=== PATIENT | female | born 1995 | race Caucasian/White ===

== ENCOUNTER 2016-12-14 17:23 | Emergency (ER) | payer BC ==
[~2016-12-14] VITALS: Ht 172.7 cm; Wt 69.3 kg
[2016-12-14 17:26] VITALS: TEMP 37.6; Ht 172.7 cm; Wt 69.3 kg
[2016-12-14] MEDS ORDERED: METHYLPREDNISOLONE 125 MG VIAL IV STA (19:56)
[2016-12-14] MEDS ORDERED: SODIUM CHLORIDE 0.9% 1000ML 2,000 ML IV STA (19:56)
[2016-12-14] MEDS ORDERED: KETOROLAC TROMETHAMINE 30 MG/ML VIAL IV STA (19:56)
[2016-12-14] MEDS ORDERED: DiphenhydrAMINE HCL 50 MG/ML VIAL IV STA (19:58)
[2016-12-14] MEDS ORDERED: CALCTAB7 PO (20:17)
[2016-12-14] MEDS ORDERED: BCPILLS PO (20:17)
[2016-12-14] MEDS ORDERED: CRAN1CAP15 (20:17)
[2016-12-14] MEDS ORDERED: MAGN400T6 PO (20:17)
[2016-12-14] MEDS ORDERED: VILA1TAB3 PO (20:17)
[2016-12-14] MEDS ORDERED: ECHI80CA PO (20:17)
[2016-12-14] MEDS ORDERED: FERR1TAB23 PO (20:17)
[2016-12-14 20:37] LABS: HEMATOCRIT 40.3 % (37-47); MEAN CELL VOLUME 87.6 fL (80-100); MEAN CORPUSCULAR HEMOGLOBIN 30.7 pg (25-34); MEAN PLATELET VOLUME 8.4 fL (7.4-10.4); PLATELET COUNT 305 K/uL (130-400); WHITE BLOOD COUNT 21.15 K/uL (4.8-10.8)
[2016-12-14 20:59] LABS: BUN/CREATININE RATIO 7.8 (10-20); C-REACTIVE PROTEIN 16.2 mg/dl (0-0.29); CALCIUM 9.1 mg/dl (8.5-10.1); CREATININE 1.2 mg/dl (0.60-1.20); POTASSIUM 3.7 mmol/L (3.5-5.1)
[2016-12-14 21:03] LABS: BASO % 0.1 %; BASO ABS # 0.02 K/uL (0-0.2); COMPLETE YES; IG% 0.4 %; LYMPH % 8.8 %; LYMPH ABS # 1.87 K/uL (1.2-3.4); MONO % 6.2 %; NEUT % 84.5 %
[2016-12-14] MEDS ORDERED: CEFTRIAXONE SOD INJ 1 GM ADDVIAL IV STA (21:54)
[2016-12-14] MEDS ORDERED: PRED20TA2 PO (21:57)
[2016-12-14] MEDS ORDERED: AMOX875T PO (21:57)
--- NOTE | 2016-12-14 21:58 | EMERGENCY ROOM VISIT NOTE ---
History Report prepared by Samir: Maryellen Beasley Under the Supervision of: Dr. Elpidio Wren M.D. First contact with patient: 19:46 Chief Complaint: ILLNESS Stated Complaint: ELEVATED HEARTRATE History of Present Illness The patient is a 21 year old female who presents to the Emergency Room with complaints of worsening illness that started yesterday. The patient was evaluated at [facility] and they send her to the ED for further evaluation of her tachycardia. She is experiencing fevers, a sore throat, and generalized body aches, which all started yesterday. She states that she has been unable to eat or drink much secondary to her sore throat. The patient is experiencing neck pain upon palpation. She tried to relieve her symptoms with ibuprofen around 1500, but she experienced minimal relief. The patient denies rhinorrhea, facial edema, abdominal pain, nausea, burning with urination, lower extremity edema, and rashes. The patient states that her roommate was diagnosed with strep throat last week and experienced similar symptoms. She adds that she was on antibiotics about one month ago for a swollen lymph node in her face. Source of History: patient Onset: yesterday Position: other (global) Quality: other (illness ) Timing: worsening Associated Symptoms: + fevers, + neck pain (with palpation), + sorethroat, No abdominal pain, No nausea, No rash, No urinary symptoms (burning with urination) Note: generalized body aches, tachycardia, no rhinorrhea, no facial edema, no lower extremity edema Review of Systems See HPI for pertinent positives & negatives. A total of 10 systems reviewed and were otherwise negative. Past Medical & Surgical Medical Problems: (1) No pertinent past medical history Family History No pertinent family history Social History Smoking Status: Never Smoker Housing Status: lives with roommate Occupation Status: [email or web address] student Current/Historical Medications Scheduled Amoxicillin & Pot Clavulanate (Augmentin 875-125 mg), 875 MG PO BID Control Pills ( Control Pills), 1 TAB PO DAILY Calcium Carbonate-Vitamin D W/ (Caltrate 600 Plus), 1 TAB PO DAILY Cranberry-Vitamin C-Vitamin E (Cranberry), 1 CAP DAILYBB Echinacea (Echinacea), 1 CAP PO DAILY Ferrous Sulfate (Iron), 1 TAB PO DAILY Magnesium Oxide (Mag-Ox), 400 MG PO DAILY Prednisone (Prednisone Tab), 20 TAB PO DAILY Vilazodone Hcl (Viibryd), 1 TAB PO DAILY Allergies Coded Allergies: No Known Allergies (Unverified , 12/14/16) Physical Exam Vital Signs Date Time Temp Pulse Resp B/P Pulse Ox O2 Delivery O2 Flow Rate FiO2 12/14/16 22:46 103 20 127/85 97 Room Air 12/14/16 22:20 62 18 124/81 99 12/14/16 21:45 94 18 115/71 100 Room Air 12/14/16 20:21 101 18 100/80 98 Room Air 12/14/16 17:26 37.6 141 18 123/84 97 Room Air Physical Exam GENERAL: Patient is tired appearing and in mild distress. HEENT: No acute trauma, normocephalic atraumatic, mucous membranes dry, no nasal congestion, no scleral icterus, swollen mal 4 tonsils with erythema and covered in exudate. NECK: Mild anterior lymphadenopathy, no stridor, no adenopathy, no meningismus, trachea is midline. LUNGS: No dyspnea. Clear to auscultation and equal bilaterally. No wheeze, no rhonchi. HEART: Tachycardic rate and regular rhythm. No murmurs, rubs, gallops appreciated. ABDOMEN: Soft, nontender, bowel sounds positive, no masses appreciated, no peritonitis. BACK: No midline tenderness, no CVA tenderness EXTREMITIES: Normal motion all extremities, no cyanosis, no edema. NEUROLOGIC: Alert and oriented, no acute motor or sensory deficits, no focal weakness, cranial nerves grossly intact. SKIN: No rash, no jaundice, no diaphoresis. Medical Decision & Procedures Laboratory Results 12/14/16 20:20 Red Blood Count 4.60, Mean Corpuscular Volume 87.6, Mean Corpuscular Hemoglobin 30.7, Mean Corpuscular Hemoglobin Concent 35.0, Mean Platelet Volume 8.4, Neutrophils (%) (Auto) 84.5, Lymphocytes (%) (Auto) 8.8, Monocytes (%) (Auto) 6.2, Eosinophils (%) (Auto) 0.0, Basophils (%) (Auto) 0.1, Neutrophils # (Auto) 17.86, Lymphocytes # (Auto) 1.87, Monocytes # (Auto) 1.31, Eosinophils # (Auto) 0.00, Basophils # (Auto) 0.02 12/14/16 20:20 Test 3/27/17 20:20 12/14/16 20:31 White Blood Count 21.15 K/uL (4.8-10.8) Red Blood Count 4.60 M/uL (4.2-5.4) Hemoglobin 14.1 g/dL (12.0-16.0) Hematocrit 40.3 % (37-47) Mean Corpuscular Volume 87.6 fL (80-100) Mean Corpuscular Hemoglobin 30.7 pg (25-34) Mean Corpuscular Hemoglobin Concent 35.0 g/dl (32-36) Platelet Count 305 K/uL (130-400) Mean Platelet Volume 8.4 fL (7.4-10.4) Neutrophils (%) (Auto) 84.5 % Lymphocytes (%) (Auto) 8.8 % Monocytes (%) (Auto) 6.2 % Eosinophils (%) (Auto) 0.0 % Basophils (%) (Auto) 0.1 % Neutrophils # (Auto) 17.86 K/uL (1.4-6.5) Lymphocytes # (Auto) 1.87 K/uL (1.2-3.4) Monocytes # (Auto) 1.31 K/uL (0.11-0.59) Eosinophils # (Auto) 0.00 K/uL (0-0.5) Basophils # (Auto) 0.02 K/uL (0-0.2) RDW Standard Deviation 39.4 fL (36.4-46.3) RDW Coefficient of Variation 12.3 % (11.5-14.5) Immature Granulocyte % (Auto) 0.4 % Immature Granulocyte # (Auto) 0.09 K/uL (0.00-0.02) Red Blood Cell Morphology Unremarkable Anion Gap 10.0 mmol/L (3-11) Est Creatinine Clear Calc Drug Dose 75.4 ml/min Estimated GFR () 75.3 Estimated GFR (Non- 65.0 BUN/Creatinine Ratio 7.8 (10-20) Calcium Level 9.1 mg/dl (8.5-10.1) C-Reactive Protein 16.20 mg/dl (0-0.29) Monoscreen NEG (NEG) Bedside Lactic Acid Venous 1.13 mmol/L (0.90-1.70) Laboratory results as reviewed by me. Medications Administered Medications (Trade) Dose Ordered Sig/Tawana Route Start Time Stop Time Status Last Admin Dose Admin Sodium Chloride (Nss 1000ml) 2,000 ml @ 999 mls/hr Q2H1M STAT IV 12/14/16 19:56 12/14/16 21:56 DC 12/14/16 20:16 999 MLS/HR Methylprednisolone Sodium Succinate (Solu-Medrol IV) 125 mg NOW STAT IV 12/14/16 19:56 12/14/16 19:58 DC 12/14/16 20:16 125 MG Ketorolac Tromethamine (Toradol Inj) 30 mg NOW STAT IV 12/14/16 19:56 12/14/16 19:58 DC 12/14/16 20:17 30 MG Diphenhydramine HCl (Benadryl Inj) 25 mg NOW STAT IV 12/14/16 19:58 12/14/16 19:59 DC 12/14/16 20:16 25 MG Ceftriaxone Sodium (Rocephin Inj) 1 gm NOW STAT IV 12/14/16 21:54 12/14/16 21:55 DC 12/14/16 22:05 1 GM Amoxicillin/ Clavulanate Potassium (Augmentin Tab) 875 mg ONE ONCE PO 12/14/16 22:00 12/14/16 22:01 DC 12/14/16 22:05 875 MG Acetaminophen/ Hydrocodone Bitart (Hydrocod/Apap Elix 7.5/325MG/ 15ML Home Pack) 1 homepack UD ONCE PO 12/14/16 22:00 12/14/16 22:01 DC 12/14/16 22:05 1 HOMEPACK ED Course 1947: The patient was evaluated in room C9. A complete history and physical exam was performed. 1955: Ordered Toradol Inj 30 mg IV, Solu-Medrol 125 mg IV, Sodium Chloride 2000 ml @ 999 mls/hr IV 1957: Ordered Benadryl Inj 25 mg IV 2040: I reassessed the patient. She is feeling better. 2149: Reevaluated the patient. I offered to admit the patient for further treatment, but she states that she is hungry and would like to go home. The patient is aware that she can return at any time if her symptoms worsen. Discussed results and discharge instructions: the patient and her dad verbalized understanding and agreement. The patient is ready for discharge. 2153: Ordered Rocephin Inj 1 gm IV 2199: Ordered Acetaminophen/Hydrocodone Bitart 1 homepack PO, Augmentin Tab 875 mg PO Medical Decision Differential: Viral, Tonsillitis, Strep, [place], Peritonsillar Abscess, Retropharyngeal Abscess, Otitis, Pneumonia, Influenza, amongst other pathologies entertained. 21 yr old female with quite severe bilateral tonsillitis. No evidence of abscess at this time as both are equal and without trismus nor ROM issues neck nor neck swelling. She has negative mono. Had negative strep earlier in day but her roommate is strep positive and her tonsils very much look bacterial. Able to swallow, not drooling and no breathing issues. She has no Mumps contact and father denies any swelling in face of patient. She has no lung complaints. Lactic acid negative and BP good thus not septic shock. She has tachycardia that resolved with IV NSS bolus. She has quite elevated WBC consistent with SIRs/Sepsis. I discussed lab findings at length with patient and father. She has normal vitals, feels much improved and is not interested in being admitted to the hospital. She very much wishes to see how she does as an outpt. I have discussed symptoms that require RTED. She is stable and looks well with no difficulty ambulating to bathroom. She notes quite frequent sore throats and issues with her tonsils. I suspect she will need tonsillectomy in near future and have expressed this thought to pt/father. Offered follow up with ENT around her though they will defer to doing this at home. She will be placed on prolonged taper of steroids as well as 10 days augmentin to try and maximize outpatient therapy. Impression Primary Impression: Acute bacterial tonsillitis Additional Impressions: Leukocytosis Dehydration Tachycardia Scribe Attestation The scribe's documentation has been prepared under my direction and personally reviewed by me in its entirety. I confirm that the note above accurately reflects all work, treatment, procedures, and medical decision making performed by me. Departure Information Dispostion Home / Self-Care Prescriptions Amoxicillin & Pot Clavulanate (Augmentin 875-125 mg) 1 Tab Tab 875 MG PO BID for 10 Days, #20 TAB Prov: Elpidio Wren M.D. 12/14/16 Prednisone (Prednisone Tab) 20 Mg Tab 20 TAB PO DAILY, #18 TAB 3 tabs daily for 3 days, then 2 tabs daily for 3 days, then 1 tab daily for 3 days. Prov: Elpidio Wren M.D. 12/14/16 Referrals No Doctor, Assigned (PCP) Forms HOME CARE DOCUMENTATION FORM, IMPORTANT VISIT INFORMATION, WORK / SCHOOL INSTRUCTIONS Patient Instructions ED Tonsillitis, [facility] Additional Instructions It is important to follow up with ENT for repeat evaluation of tonsils. If at any time you feels symptoms are worsening, you can not swallow, you have increasing fevers, passing out, swelling of neck/tongue or other concerns, return for further evaluation. You have received a narcotic pain medication. These medications may cause drowsiness and should not be used with other sedative medications. Do not drive , drink alcohol, perform dangerous activities, nor make important decisions after taking these medications. terminal gauger use or inappropriate use may lead to addiction. Prednisone can irritate the stomach and taking an anti-acid along with it may be beneficial. Problem Qualifiers Additional Impressions: Leukocytosis Leukocytosis type: unspecified Qualified Codes: D72.829 - Elevated white blood cell count, unspecified
[2016-12-14] MEDS ORDERED: HYDROCODONE/APAP ELIX 60ML HOME PACK PO ONE (22:00)
[2016-12-14] MEDS ORDERED: AMOXICILLIN/CLAVULANATE TAB 875 MG TAB PO ONE (22:00)
[2016-12-14 22:46] VITALS: BP 127/85; PULSE 103; O2SAT 97
== END 2016-12-14 22:45 | disposition home or self-care (01) ==
LOC: C.EDB 17:24 → C.EDC 22:45
DX: J03.90 Acute tonsillitis, unspecified (principal); A49.9 Bacterial infection, unspecified; D72.829 Elevated white blood cell count, unspecified; E86.0 Dehydration; R00.0 Tachycardia, unspecified; Z79.899 Other long term (current) drug therapy

== ENCOUNTER → 2017-08-24 | Outpatient (CLI) | payer BC ==
[~2017-08-24] MED LIST: BCPILLS PO; CALCTAB7 PO; CRAN1CAP15; ECHI80CA PO; FERR1TAB23 PO; MAGN400T6 PO; VILA1TAB3 PO
[2017-08-24 15:08] LABS: URINE APPEARANCE CLEAR (CLEAR); URINE BILIRUBIN NEG (NEG); URINE COLOR YELLOW; URINE NITRITE NEG (NEG); UROBILINOGEN NEG (NEG)
[2017-08-24 15:27] LABS: MANUAL MICROSCOPIC REQUIRED? YES; REVIEW REQ? NO
[2017-08-24 15:40] LABS: URINE BACTERIA 1+ (NEG); URINE RBC 0-4 /hpf (0-4)
== END | disposition home or self-care (01) ==
LOC: C.LAB 11:31
PROVIDERS: ATTEND Obstetrics & Gynecology
DX: R30.0 Dysuria (principal)